=== PATIENT | male | born 1990 | race Two or more races ===

== ENCOUNTER 2017-08-08 11:52 | Emergency (ER) | payer SELFPAY ==
[~2017-08-08] VITALS: Ht 162.6 cm; Wt 68.0 kg
[2017-08-08 12:14] VITALS: BP 123/72
[2017-08-08] MEDS ORDERED: KETOROLAC TROMETH 30 MG/ML 1ML VIAL IV ONE (12:45)
[2017-08-08] MEDS ORDERED: SODIUM CHLORIDE 0.9% 1,000 ML IV ONE (12:45)
== END 2017-08-08 14:07 | disposition home or self-care (01) ==
LOC: ER 11:52
DX: S29.012A Strain of muscle and tendon of back wall of thorax, initial encounter (principal); F17.210 Nicotine dependence, cigarettes, uncomplicated; V73.9XXA Unspecified occupant of bus injured in collision with car, pick-up truck or van in traffic accident, initial encounter; Y93.89 Activity, other specified; Y92.89 Other specified places as the place of occurrence of the external cause; Y99.8 Other external cause status
CPT/HCPCS: 72070; 96361; 96374; 99284; J1885